=== PATIENT | female | born 1950 | race Caucasian/White ===

== ENCOUNTER 2021-08-11 19:20 | Emergency (ER) | payer OTHER, MEDICAID ==
[~2021-08-11] VITALS: Ht 170.2 cm; Wt 101.4 kg
[2021-08-11] MEDS ORDERED: DILT-95 PO (20:44)
[2021-08-11] MEDS ORDERED: GABA-1181 PO (20:44)
[2021-08-11] MEDS ORDERED: ATOR40TA28 PO (20:44)
[2021-08-11] MEDS ORDERED: LOSA-382 PO (20:44)
[2021-08-11] MEDS ORDERED: ASPI-1450 PO (20:44)
[2021-08-11] MEDS ORDERED: FLUO20CA36 PO (20:44)
[2021-08-11] MEDS ORDERED: METF-1211 PO (20:44)
[2021-08-11] MEDS ORDERED: ALBUTEROL SULFATE HFA 90 MCG/PUFF 8 GM INHALER IH ONE (20:45)
[2021-08-11 22:00] VITALS: BP 141/77
== END 2021-08-12 01:20 | disposition home or self-care (01) ==
LOC: EMS 19:22
DX: U07.1 COVID-19 (principal); I10 Essential (primary) hypertension; E11.9 Type 2 diabetes mellitus without complications; E78.00 Pure hypercholesterolemia, unspecified; Z88.5 Allergy status to narcotic agent; Z79.84 Long term (current) use of oral hypoglycemic drugs; Z79.899 Other long term (current) drug therapy
CPT/HCPCS: 71045; 94640; 99283; J3535

== ENCOUNTER 2021-08-28 17:00 | Emergency (ER) | payer MEDICAID, OTHER ==
[~2021-08-28] VITALS: Ht 167.6 cm; Wt 81.8 kg
[~2021-08-28 17:00] MED LIST: ASPI-1450 PO; ATOR40TA28 PO; DILT-95 PO; FLUO20CA36 PO; GABA-1181 PO; LOSA-382 PO; METF-1211 PO
[2021-08-28 20:39] LABS: BASOPHILS % (AUTO) 0.4 % (0.0-2.0); EOSINOPHILS % (AUTO) 3.4 % (1.0-6.0); HEMATOCRIT 40.2 % (36-46); HEMOGLOBIN 13.1 g/dL (12.0-16.0); LYMPHOCYTES % (AUTO) 28.1 % (22.0-44.0); MEAN CORPUSCULAR HEMOGLOBIN 28.1 pg (26.0-34.0); MEAN CORPUSCULAR HGB CONC 32.7 G/dL (31.0-37.0); MEAN CORPUSCULAR VOLUME 86 fL (80-100); MONOCYTES # (AUTO) 0.6 K/uL (0.1-1.0); MONOCYTES % (AUTO) 9.1 % (2.0-9.0); NEUTROPHILS # (AUTO) 4.2 K/uL (1.8-7.7); PLATELET COUNT (AUTO) 369 K/uL (150-450); RED BLOOD CELL COUNT(AUTO) 4.68 MIL/uL (4.00-5.20); RED CELL DISTRIBUTION WIDTH 13.8 % (11.5-14.5)
[2021-08-28 20:49] LABS: CALCIUM, TOTAL 9.9 mg/dL (8.8-10.5); CREATININE 1.2 mg/dL (0.60-1.30)
[2021-08-28 20:54] LABS: ALBUMIN 3.9 g/dL (3.4-5.0); BILIRUBIN,TOTAL 0.6 mg/dL (0.1-1.0); TOTAL PROTEIN, SERUM 8.4 g/dL (6.4-8.2)
[2021-08-28] MEDS ORDERED: LORazepam 1 MG TABLET PO ONE (21:45)
[2021-08-28] MEDS ORDERED: LORazepam 2 MG/ML VIAL IVP ONE (21:45)
[2021-08-28] MEDS ORDERED: ACETAMINOPHEN 325 MG TABLET PO ONE (21:45)
[2021-08-28 22:15] VITALS: BP 128/63
== END 2021-08-28 22:24 | disposition home or self-care (01) ==
LOC: EMS 17:00
DX: F41.9 Anxiety disorder, unspecified (principal); F43.9 Reaction to severe stress, unspecified; I10 Essential (primary) hypertension; E11.9 Type 2 diabetes mellitus without complications; E78.00 Pure hypercholesterolemia, unspecified; Z79.84 Long term (current) use of oral hypoglycemic drugs; Z79.899 Other long term (current) drug therapy; Z88.5 Allergy status to narcotic agent
CPT/HCPCS: 80053; 85025; 99283; J2060